=== PATIENT | male | born 1970 | race Caucasian/White ===

== ENCOUNTER 2017-05-05 19:12 | Emergency (ER) | payer BC ==
[2017-05-05 20:40] LABS: INFLUENZA A PATIENT NEGATIVE (NEGATIVE); INFLUENZA B PATIENT NEGATIVE (NEGATIVE); OBC FLU VALID
== END 2017-05-05 21:00 | disposition home or self-care (01) ==
LOC: ER 19:12
DX: J21.9 Acute bronchiolitis, unspecified (principal); M10.9 Gout, unspecified; Z98.1 Arthrodesis status
CPT/HCPCS: 87804; 87804-59; 99284

== ENCOUNTER 2019-04-12 03:53 | Observation (INO) | payer BC ==
[2019-04-12] VITALS (14 sets, daily range): BP systolic 108–144; BP diastolic 42–81
[~2019-04-12] VITALS: Ht 177.8 cm; Wt 97.5 kg
[~2019-04-12 03:53] MED LIST: HYDR5SUS PO; ONDA4TAB10 SL
[2019-04-12 04:44] LABS: BASO # 0.1 x10^3/uL (0.0-0.2); BASO % 0 % (0-3); EOS # 0.3 x10^3/uL (0.0-0.7); EOS % 2 % (0-3); HEMATOCRIT 40.4 % (39.0-53.0); HEMOGLOBIN 14.2 g/dL (13.0-17.5); LYMPH # 1.8 x10^3/uL (1.0-4.8); LYMPH % 13 % (24-48); MEAN CORPUSCULAR HEMOGLOBIN 31 pg (25-35); MEAN CORPUSCULAR HGB CONC 35 g/dL (31-37); MEAN CORPUSCULAR VOLUME 88 fL (79-100); MONO # 1.7 x10^3/uL (0.0-1.1); MONO % 12 % (0-9); NEUT # 9.8 x10^3/uL (1.8-7.7); NEUT % 72 % (31-73); PLATELET COUNT 445 x10^3/uL (140-400); RED BLOOD COUNT 4.58 x10^6/uL (4.30-5.70); RED CELL DISTRIBUTION WIDTH 12.8 % (11.5-14.5); WHITE BLOOD COUNT 13.7 x10^3/uL (4.0-11.0)
[2019-04-12] MEDS ORDERED: CONTRAST GIVEN. MC PRN (04:45)
[2019-04-12 04:50] LABS: CALCIUM 8.9 mg/dL (8.5-10.1); CREATININE 1.1 mg/dL (0.7-1.3); GFR 70.9; POTASSIUM 4.1 mmol/L (3.5-5.1)
[2019-04-12 04:56] LABS: ALBUMIN 3.3 g/dL (3.4-5.0); ALBUMIN/GLOBULIN RATIO 0.8 (1.0-1.7); TOTAL BILIRUBIN 0.7 mg/dL (0.2-1.0); TOTAL PROTEIN 7.7 g/dL (6.4-8.2)
[2019-04-12] MEDS ORDERED: ONDANSETRON PF 4 MG/2 ML VIAL. IV ONE (05:00)
[2019-04-12] MEDS ORDERED: fentaNYL PF VIAL 100 MCG/2 ML VIAL IV ONE (05:00)
[2019-04-12] MEDS ORDERED: IOHEXOL 300 MG/ML 100ML VIAL. IV ONE (05:00)
[2019-04-12] MEDS ORDERED: IV NORMAL SALINE 1000ML BAG 1,000 ML IV ONE (05:00)
--- NOTE | 2019-04-12 05:19 | RAD ---
Exam: Ultrasound scrotum Indication: Swollen testicles Technique: Real-time grayscale and color Doppler images of the scrotum were obtained by the department upsetter setter up. Comparisons: None FINDINGS: Right testicle measures 4.3 x 3.0 x 2.3 cm. Normal blood flow noted within the right testicle. Left testicle measures 4.3 x 2.7 x 2.5 cm. Normal blood flow noted within the left testicle. Bilateral epididymal cysts are noted. Scrotal skin edema is noted, particularly in the inferior scrotum. IMPRESSION: 1. Normal sonographic appearance of the testicles. 2. Extensive scrotal skin edema, particularly in the inferior scrotum. Electronically signed by: La Minor MD (04/12/2019 5:16 AM) [facility]
--- NOTE | 2019-04-12 05:29 | PHYS DOC ---
Past Medical History Past Medical History: Other Additional Past Medical Histor: gout Past Surgical History: Other Additional Past Surgical Histo: cervical fusion, tendon repair right arm. Alcohol Use: None Drug Use: None Adult General Chief Complaint Chief Complaint: TESTICULAR PAIN OR INJURY [facility] HPI 48-year-old otherwise healthy male presents with tender swollen draining areas in the perianal region. He states he saw doctor several days ago and while they were painful they were not on the surface and they were not drained. He states he's been soaking in hot baths and has got one of the areas to come to the surface and drained. He states that there are other areas that are tender swollen and very painful and not draining. He also states that he has had symptoms testicular pain and his testicles have been swollen over the last 24 hours. He denies any fever chills or sweats. He denies any dysuria or gross hematuria. He is never had a diagnosis of Crohn's disease in the past.[] Review of Systems Review of Systems Constitutional: Denies fever or chills [] Eyes: Denies change in visual acuity, redness, or eye pain [] HENT: Denies nasal congestion or sore throat [] Respiratory: Denies cough or shortness of breath [] Cardiovascular: No additional information not addressed in HPI [] GI: Denies abdominal pain, nausea, vomiting, bloody stools or diarrhea , reports perianal abscesses as described in the history of present illness[] : Per history of present illness[] Musculoskeletal: Denies back pain or joint pain [] Integument: Denies rash or skin lesions [] Neurologic: Denies headache, focal weakness or sensory changes [] Endocrine: Denies polyuria or polydipsia [] All other systems were reviewed and found to be within normal limits, except as documented in this note. Current Medications Current Medications Current Medications Medications (Trade) Dose Ordered Sig/Rosemary Start Time Stop Time Status Last Admin Dose Admin Fentanyl Citrate (Fentanyl 2ml Vial) 50 mcg 1X ONCE 04/12/19 05:00 04/12/19 05:01 DC 04/12/19 04:37 50 MCG Info (CONTRAST GIVEN -- Rx MONITORING) 1 each PRN DAILY PRN 04/12/19 04:45 04/14/19 04:44 Iohexol (Omnipaque 300 Mg/ml) 75 ml 1X ONCE 04/12/19 05:00 04/12/19 05:01 DC Ondansetron HCl (Zofran) 4 mg 1X ONCE 04/12/19 05:00 04/12/19 05:01 DC 04/12/19 04:40 4 MG Sodium Chloride 1,000 ml @ 1,000 mls/hr 1X ONCE 04/12/19 05:00 04/12/19 05:59 04/12/19 04:38 1,000 MLS/HR Allergies Allergies Allergies Coded Allergies Type Severity Reaction Last Updated Verified No Known Drug Allergies 04/12/19 No Physical Exam Physical Exam Constitutional: Well developed, well nourished, moderate distress, non-toxic appearance. [] HENT: Normocephalic, atraumatic, bilateral external ears normal, oropharynx moist, no oral exudates, nose normal. [] Eyes: PERRLA, EOMI, conjunctiva normal, no discharge. [] Neck: Normal range of motion, no tenderness, supple, no stridor. [] Cardiovascular:Heart rate regular rhythm, no murmur [] Lungs & Thorax: Bilateral breath sounds clear to auscultation [] Abdomen: Bowel sounds normal, soft, no tenderness, no masses, no pulsatile masses. [] : Testicles are mildly swollen and not particularly erythematous and are not tender to palp he does have very large right perianal abscess that tracks certainly towards the rectal area Skin: Warm, dry, no erythema, no rash. [] Back: No tenderness, no CVA tenderness. [] Extremities: No tenderness, no cyanosis, no clubbing, ROM intact, no edema. [] Neurologic: Alert and oriented X 3, normal motor function, normal sensory functi on, no focal deficits noted. [] Psychologic: Anxious[] Current Patient Data Vital Signs Vital Signs Date Time Temp Pulse Resp B/P (MAP) Pulse Ox O2 Delivery O2 Flow Rate FiO2 04/12/19 04:37 20 96 Room Air 04/12/19 04:00 98.2 84 144/99 (114) 98.2 Lab Values Laboratory Tests Test 04/12/19 04:27 White Blood Count 13.7 x10^3/uL (4.0-11.0) H Red Blood Count 4.58 x10^6/uL (4.30-5.70) Hemoglobin 14.2 g/dL (13.0-17.5) Hematocrit 40.4 % (39.0-53.0) Mean Corpuscular Volume 88 fL (79-100) Mean Corpuscular Hemoglobin 31 pg (25-35) Mean Corpuscular Hemoglobin Concent 35 g/dL (31-37) Red Cell Distribution Width 12.8 % (11.5-14.5) Platelet Count 445 x10^3/uL (140-400) H Neutrophils (%) (Auto) 72 % (31-73) Lymphocytes (%) (Auto) 13 % (24-48) L Monocytes (%) (Auto) 12 % (0-9) H Eosinophils (%) (Auto) 2 % (0-3) Basophils (%) (Auto) 0 % (0-3) Neutrophils # (Auto) 9.8 x10^3/uL (1.8-7.7) H Lymphocytes # (Auto) 1.8 x10^3/uL (1.0-4.8) Monocytes # (Auto) 1.7 x10^3/uL (0.0-1.1) H Eosinophils # (Auto) 0.3 x10^3/uL (0.0-0.7) Basophils # (Auto) 0.1 x10^3/uL (0.0-0.2) Sodium Level 135 mmol/L (136-145) L Potassium Level 4.1 mmol/L (3.5-5.1) Chloride Level 99 mmol/L (98-107) Carbon Dioxide Level 26 mmol/L (21-32) Anion Gap 10 (6-14) Blood Urea Nitrogen 10 mg/dL (8-26) Creatinine 1.1 mg/dL (0.7-1.3) Estimated GFR (Cockcroft-Gault) 70.9 BUN/Creatinine Ratio 9 (6-20) Glucose Level 121 mg/dL (70-99) H Calcium Level 8.9 mg/dL (8.5-10.1) Total Bilirubin 0.7 mg/dL (0.2-1.0) Aspartate Amino Transferase (AST) 22 U/L (15-37) Alanine Aminotransferase (ALT) 61 U/L (16-63) Alkaline Phosphatase 295 U/L (46-116) H Total Protein 7.7 g/dL (6.4-8.2) Albumin 3.3 g/dL (3.4-5.0) L Albumin/Globulin Ratio 0.8 (1.0-1.7) L Laboratory Tests 04/12/19 04:27 Laboratory Tests 04/12/19 04:27 EKG EKG [] Radiology/Procedures Radiology/Procedures []STATUS: REG ERORD. PHYSICIAN: HUYEN MCELROY DO REASON: swollen testicles PROCEDURE: TESTICULAR/SCROTUM Exam: Ultrasound scrotum Indication: Swollen testicles Technique: Real-time grayscale and color Doppler images of the scrotum were obtained by the department botany technician. Comparisons: None FINDINGS: Right testicle measures 4.3 x 3.0 x 2.3 cm. Normal blood flow noted within the right testicle. Left testicle measures 4.3 x 2.7 x 2.5 cm. Normal blood flow noted within the left testicle. Bilateral epididymal cysts are noted. Scrotal skin edema is noted, particularly in the inferior scrotum. IMPRESSION: 1. Normal sonographic appearance of the testicles. 2. Extensive scrotal skin edema, particularly in the inferior scrotum. Impressions: STATUS: REG ERORD. PHYSICIAN: HUYEN MCELROY DO REASON: perianal/perirectal abscess, OMNI 300, 75 ML IV PROCEDURE: CT PELVIS W/CONTRAST Exam: CT pelvis with contrast INDICATION: Perianal abscess TECHNIQUE: Sequential axial images through the pelvis obtained following the administration of 75 mL of Omni 300 IV contrast. Sagittal and coronal reformatted images were reconstructed from the axial data and reviewed. Comparisons: None FINDINGS: Visualized intrapelvic structures are unremarkable. Pelvic vasculature is patent. No pelvic lymphadenopathy. There is soft tissue induration is noted along the medial right gluteal cleft, extending anteriorly with some inflammation of the inferior scrotum. No focal fluid collection is identified. No suspicious osseous lesions or acute fractures. IMPRESSION: Inflammation and induration involving the medial right gluteal cleft and surrounding soft tissue without focal fluid collection identified. Course & Med Decision Making Course & Med Decision Making Pertinent Labs and Imaging studies reviewed. (See chart for details) [] Dragon Disclaimer Dragon Disclaimer This electronic medical record was generated, in whole or in part, using a voice recognition dictation system. Departure Departure Impression: Primary Impression: Perianal abscess Referrals: ROSYE PEARCE MD (PCP) HUYEN MCELROY DO Apr 12, 2019 05:29
--- NOTE | 2019-04-12 05:37 | RAD ---
Exam: CT pelvis with contrast INDICATION: Perianal abscess TECHNIQUE: Sequential axial images through the pelvis obtained following the administration of 75 mL of Omni 300 IV contrast. Sagittal and coronal reformatted images were reconstructed from the axial data and reviewed. Comparisons: None FINDINGS: Visualized intrapelvic structures are unremarkable. Pelvic vasculature is patent. No pelvic lymphadenopathy. There is soft tissue induration is noted along the medial right gluteal cleft, extending anteriorly with some inflammation of the inferior scrotum. No focal fluid collection is identified. No suspicious osseous lesions or acute fractures. IMPRESSION: Inflammation and induration involving the medial right gluteal cleft and surrounding soft tissue without focal fluid collection identified. Exposure: One or more of the following in the visualized dose reduction techniques were utilized for this examination: 1. Automated exposure control 2. Adjustment of the MA and/or KV according to patient size 3. Use of iterative of reconstructive technique Electronically signed by: La Minor MD (04/12/2019 5:34 AM) [facility]
[2019-04-12] MEDS ORDERED: ONDANSETRON PF 4 MG/2 ML VIAL. IV PRN ×2 (05:45→09:00)
[2019-04-12] MEDS ORDERED: PIPERACILLIN/TAZOBACTAM 3.375 GM in IV NORMAL SALINE 50ML 50 ML IV ONE ×2 (06:00→10:30)
[2019-04-12] MEDS: IV NORMAL SALINE 1000ML BAG 1,000 ML IV SCH ×3 (06:42→19:05)
[2019-04-12] MEDS: fentaNYL PF VIAL 100 MCG/2 ML VIAL IV PRN ×6 (06:44→15:15)
--- NOTE | 2019-04-12 08:41 | PDOC2 ---
SEUN FLAHERTY Yohan BIODIESEL PRODUCT DEVELOPMENT MANAGER 04/12/19 0841: CONSULT Date of Consult Date of Consult DATE: 04/12/19 TIME: 08:35 Reason for Consult Reason for Consult: perineal abscess Referring Physician Referring Physician: ER Identification/Chief Complaint Chief Complaint perirectal pain Source Source: Chart review, Patient History of Present Illness Reason for Visit: Reports 1 week with perirectal pain, swelling--has been on oral abx since . Yesterday with drainage, however swelling extended to scrotum. Very painful. Past Medical History Rheumatologic: Gout Past Surgical History Past Surgical History: No pertinent history Family History Family History: Other (noncontributory to current illness ) Social History No ALCOHOL: rare Drugs: None Lives: with Family Current Problem List Problem List Problems Medical Problems: (1) Perianal abscess Status: Acute Current Medications Current Medications Current Medications Sodium Chloride 1,000 ml @ 1,000 mls/hr 1X ONCE IV Last administered on 04/12/19at 04:38; Start 04/12/19 at 05:00; Stop 04/12/19 at 05:59; Status DC Fentanyl Citrate (Fentanyl 2ml Vial) 50 mcg 1X ONCE IV Last administered on 04/12/19at 04:37; Start 04/12/19 at 05:00; Stop 04/12/19 at 05:01; Status DC Ondansetron HCl (Zofran) 4 mg 1X ONCE IV Last administered on 04/12/19at 04:40; Start 04/12/19 at 05:00; Stop 04/12/19 at 05:01; Status DC Iohexol (Omnipaque 300 Mg/ml) 75 ml 1X ONCE IV ; Start 04/12/19 at 05:00; Stop 04/12/19 at 05:01; Status DC Info (CONTRAST GIVEN -- Rx MONITORING) 1 each PRN DAILY PRN MC SEE COMMENTS; Start 04/12/19 at 04:45; Stop 04/14/19 at 04:44 Ondansetron HCl (Zofran) 4 mg PRN Q8HRS PRN IV NAUSEA/VOMITING 1ST CHOICE; Start 04/12/19 at 05:45; Stop 04/13/19 at 05:44 Fentanyl Citrate (Fentanyl 2ml Vial) 50 mcg PRN Q1HR PRN IV SEVERE PAIN 7-10 Last administered on 04/12/19at 08:06; Start 04/12/19 at 05:45; Stop 04/13/19 at 05:44 Sodium Chloride 1,000 ml @ 150 mls/hr Q6H40M IV Last administered on 04/12/19at 06:42; Start 04/12/19 at 06:00; Stop 04/13/19 at 05:59 Piperacillin Sod/ Tazobactam Sod 3.375 gm/Sodium Chloride 50 ml @ 100 mls/hr 1X ONCE IV Last administered on 04/12/19at 06:42; Start 04/12/19 at 06:00; Stop 04/12/19 at 06:29; Status DC Active Scripts Active Zofran Odt (Ondansetron) 4 Mg Tab.rapdis 1 Tab SL Q8HRS Hydrocodone-Chlorpheniram Susp (Hydrocodone/Chlorphen Polis) 5 Ml Drea.er.12h 5 Ml PO PRN Q12HR PRN Allergies Allergies: Coded Allergies: No Known Drug Allergies (Unverified , 04/12/19) ROS General: YES: Chills, Other (subjective fevers ) PSYCHOLOGICAL ROS: No: Anxiety, Depression Eyes: No Blurry vision, No Double vision HEENT: No: Heacaches, Sore Throat Hematological and Lymphatic: No: Bleeding Problems, Blood Clots Respiratory: No: Cough, Shortness of breath Cardiovascular: No Chest Pain, No Palpitations Gastrointestinal: No Nausea, No Vomiting, No Abdominal Pain Genitourinary: YES Dysuria; No Hematuria Musculoskeletal: No Joint Pain, No Muscle Pain Neurological: No Impaired Coord/balance, No Numbness/Tingling Skin: Yes Other (see hpi) Physical Exam General: Alert, Oriented X3, Cooperative, No acute distress HEENT: PERRLA, Mucous membr. moist/pink Lungs: Clear to auscultation, Normal air movement Heart: Regular rate, Normal S1, Normal S2, No murmurs Abdomen: Soft, No tenderness Extremities: No clubbing, No cyanosis Skin: Other (right perineal area with induration, tenderness, area with fluctunace and some drainage, scrotal swelling ) Neuro: Normal speech, Sensation intact Psych/Mental Status: Mental status NL, Mood NL MUSCULOSKELETAL: No deformity, No swelling Vitals VITALS Vital Signs Date Time Temp Pulse Resp B/P (MAP) Pulse Ox O2 Delivery O2 Flow Rate FiO2 04/12/19 08:06 Room Air 04/12/19 07:37 98.8 67 18 114/71 (85) 97 98.8 Labs Labs Laboratory Tests Test 04/12/19 04:27 White Blood Count 13.7 x10^3/uL (4.0-11.0) Red Blood Count 4.58 x10^6/uL (4.30-5.70) Hemoglobin 14.2 g/dL (13.0-17.5) Hematocrit 40.4 % (39.0-53.0) Mean Corpuscular Volume 88 fL (79-100) Mean Corpuscular Hemoglobin 31 pg (25-35) Mean Corpuscular Hemoglobin Concent 35 g/dL (31-37) Red Cell Distribution Width 12.8 % (11.5-14.5) Platelet Count 445 x10^3/uL (140-400) Neutrophils (%) (Auto) 72 % (31-73) Lymphocytes (%) (Auto) 13 % (24-48) Monocytes (%) (Auto) 12 % (0-9) Eosinophils (%) (Auto) 2 % (0-3) Basophils (%) (Auto) 0 % (0-3) Neutrophils # (Auto) 9.8 x10^3/uL (1.8-7.7) Lymphocytes # (Auto) 1.8 x10^3/uL (1.0-4.8) Monocytes # (Auto) 1.7 x10^3/uL (0.0-1.1) Eosinophils # (Auto) 0.3 x10^3/uL (0.0-0.7) Basophils # (Auto) 0.1 x10^3/uL (0.0-0.2) Sodium Level 135 mmol/L (136-145) Potassium Level 4.1 mmol/L (3.5-5.1) Chloride Level 99 mmol/L (98-107) Carbon Dioxide Level 26 mmol/L (21-32) Anion Gap 10 (6-14) Blood Urea Nitrogen 10 mg/dL (8-26) Creatinine 1.1 mg/dL (0.7-1.3) Estimated GFR (Cockcroft-Gault) 70.9 BUN/Creatinine Ratio 9 (6-20) Glucose Level 121 mg/dL (70-99) Calcium Level 8.9 mg/dL (8.5-10.1) Total Bilirubin 0.7 mg/dL (0.2-1.0) Aspartate Amino Transf (AST/SGOT) 22 U/L (15-37) Alanine Aminotransferase (ALT/SGPT) 61 U/L (16-63) Alkaline Phosphatase 295 U/L (46-116) Total Protein 7.7 g/dL (6.4-8.2) Albumin 3.3 g/dL (3.4-5.0) Albumin/Globulin Ratio 0.8 (1.0-1.7) Laboratory Tests Test 04/12/19 04:27 White Blood Count 13.7 x10^3/uL (4.0-11.0) Red Blood Count 4.58 x10^6/uL (4.30-5.70) Hemoglobin 14.2 g/dL (13.0-17.5) Hematocrit 40.4 % (39.0-53.0) Mean Corpuscular Volume 88 fL (79-100) Mean Corpuscular Hemoglobin 31 pg (25-35) Mean Corpuscular Hemoglobin Concent 35 g/dL (31-37) Red Cell Distribution Width 12.8 % (11.5-14.5) Platelet Count 445 x10^3/uL (140-400) Neutrophils (%) (Auto) 72 % (31-73) Lymphocytes (%) (Auto) 13 % (24-48) Monocytes (%) (Auto) 12 % (0-9) Eosinophils (%) (Auto) 2 % (0-3) Basophils (%) (Auto) 0 % (0-3) Neutrophils # (Auto) 9.8 x10^3/uL (1.8-7.7) Lymphocytes # (Auto) 1.8 x10^3/uL (1.0-4.8) Monocytes # (Auto) 1.7 x10^3/uL (0.0-1.1) Eosinophils # (Auto) 0.3 x10^3/uL (0.0-0.7) Basophils # (Auto) 0.1 x10^3/uL (0.0-0.2) Sodium Level 135 mmol/L (136-145) Potassium Level 4.1 mmol/L (3.5-5.1) Chloride Level 99 mmol/L (98-107) Carbon Dioxide Level 26 mmol/L (21-32) Anion Gap 10 (6-14) Blood Urea Nitrogen 10 mg/dL (8-26) Creatinine 1.1 mg/dL (0.7-1.3) Estimated GFR (Cockcroft-Gault) 70.9 BUN/Creatinine Ratio 9 (6-20) Glucose Level 121 mg/dL (70-99) Calcium Level 8.9 mg/dL (8.5-10.1) Total Bilirubin 0.7 mg/dL (0.2-1.0) Aspartate Amino Transf (AST/SGOT) 22 U/L (15-37) Alanine Aminotransferase (ALT/SGPT) 61 U/L (16-63) Alkaline Phosphatase 295 U/L (46-116) Total Protein 7.7 g/dL (6.4-8.2) Albumin 3.3 g/dL (3.4-5.0) Albumin/Globulin Ratio 0.8 (1.0-1.7) Assessment/Plan Assessment/Plan perineal cellulitis, asbcess would appear to benefit from I&D, however this extends to scrotum--will have Dr Markham review continue abx CHERYL MARKHAM MD 04/12/19 1506: CONSULT Assessment/Plan Assessment/Plan pt seen, interviewed and examined earlier d/w Artur and his for I and D today will follow Thanks for consult SEUN FLAHERTY APRN Apr 12, 2019 08:41 CHERYL MARKHAM MD Apr 12, 2019 15:06
[2019-04-12] MEDS ORDERED: IV RINGERS,LACTATED 1000ML 1,000 ML IV SCH (08:47)
[2019-04-12] MEDS ORDERED: MORPHINE SULFATE 2 MG/ML VIAL. IV PRN (09:00)
[2019-04-12] MEDS ORDERED: HYDROmorphone 2 MG/ML VIAL IV PRN (09:00)
[2019-04-12] MEDS ORDERED: fentaNYL PF VIAL 100 MCG/2 ML VIAL IV PRN ×2 (09:00)
[2019-04-12] MEDS ORDERED: PROCHLORPERAZINE 10 MG/2 ML VIAL. IV PRN (09:00)
[2019-04-12] MEDS ORDERED: CLIN300C8 PO ×2 (09:04→19:42)
[2019-04-12] MEDS ORDERED: PROB500T23 PO (09:04)
--- NOTE | 2019-04-12 11:00 | NUR ---
wound care patient going to surgery today 04/12/19, wound care will f/u tomorrow.
--- NOTE | 2019-04-12 11:45 | NUR ---
SW following for discharge planning. Discussed with RN, pt from home. PT having surgery today. SW will continue to follow for any discharge planning needs.
[2019-04-12] MEDS ORDERED: fentaNYL PF VIAL 100 MCG/2 ML VIAL ONE ×3 (11:56→13:27)
[2019-04-12] MEDS ORDERED: MIDAZOLAM HCL/PF 2 MG/2 ML VIAL. ONE (12:00)
[2019-04-12] MEDS ORDERED: DEXAMETHASONE SOD PHOS 4 MG/ML VIAL ONE (12:00)
[2019-04-12] MEDS ORDERED: LIDOCAINE 2% PF 5 ML VIAL. ONE (12:00)
[2019-04-12] MEDS ORDERED: PROPOFOL 20 ML IV ONE (12:00)
[2019-04-12] MEDS ORDERED: KETAMINE HCL IN NACL, ISO-OSM 50 MG/5 ML SYRINGE ONE (12:00)
[2019-04-12] MEDS ORDERED: ONDANSETRON PF 4 MG/2 ML VIAL. ONE (12:00)
[2019-04-12] MEDS ORDERED: FAMOTIDINE 20 MG/2 ML VIAL ONE (12:03)
[2019-04-12] MEDS ORDERED: BUPIVACAINE-EPI 0.5%-1:200000 MPF 30 ML VIAL. INJ ONE (12:15)
[2019-04-12] MEDS ORDERED: SEVOFLURANE 16 TO 30 MINUTES. IH ONE (12:43)
--- NOTE | 2019-04-12 12:49 | PDOC1 ---
History and Physical Date of Admission Date of Admission DATE: 04/12/19 TIME: 12:49 Identification/Chief Complaint Chief Complaint Jamie-anal abscess Source Source: Patient History of Present Illness History of Present Illness Mr Miranda is a 48y M w/ PMHx Gout who p/w tender swollen draining areas in the perianal region, worse on the right. He states he saw doctor several days ago and while they were painful they were not on the surface and they were not drained. He states he's been soaking in hot baths and has got one of the areas to come to the surface and drained. He states that there are other areas that ar e tender swollen and very painful and not draining. He also states that he has had symptoms testicular pain and his testicles have been swollen over the last 24 hours. He denies any fever chills or sweats. He denies any dysuria or gross hematuria. He has been on oral abx since . Too painful to handle at home. CT shows right gluteal cleft induration. WBC 13K. Admitted for pain control with surgical consultation. Past Medical History Cardiovascular: No pertinent hx Rheumatologic: Gout Past Surgical History Past Surgical History: Other (Cervical fusion, tendon rupture surgery) Family History Family History: Other (noncontributory to current illness ) Social History Smoke: No ALCOHOL: rare Drugs: None Current Problem List Problem List Problems Medical Problems: (1) Perianal abscess Status: Acute Current Medications Current Medications Current Medications Sodium Chloride 1,000 ml @ 1,000 mls/hr 1X ONCE IV Last administered on 04/12/19at 04:38; Start 04/12/19 at 05:00; Stop 04/12/19 at 05:59; Status DC Fentanyl Citrate (Fentanyl 2ml Vial) 50 mcg 1X ONCE IV Last administered on 04/12/19at 04:37; Start 04/12/19 at 05:00; Stop 04/12/19 at 05:01; Status DC Ondansetron HCl (Zofran) 4 mg 1X ONCE IV Last administered on 04/12/19at 04:40; Start 04/12/19 at 05:00; Stop 04/12/19 at 05:01; Status DC Iohexol (Omnipaque 300 Mg/ml) 75 ml 1X ONCE IV ; Start 04/12/19 at 05:00; Stop 04/12/19 at 05:01; Status DC Info (CONTRAST GIVEN -- Rx MONITORING) 1 each PRN DAILY PRN MC SEE COMMENTS; Start 04/12/19 at 04:45; Stop 04/14/19 at 04:44 Ondansetron HCl (Zofran) 4 mg PRN Q8HRS PRN IV NAUSEA/VOMITING 1ST CHOICE; Start 04/12/19 at 05:45; Stop 04/13/19 at 05:44 Fentanyl Citrate (Fentanyl 2ml Vial) 50 mcg PRN Q1HR PRN IV SEVERE PAIN 7-10 Last administered on 04/12/19at 11:58; Start 04/12/19 at 05:45; Stop 04/13/19 at 05:44 Sodium Chloride 1,000 ml @ 150 mls/hr Q6H40M IV Last administered on 04/12/19at 06:42; Start 04/12/19 at 06:00; Stop 04/13/19 at 05:59 Piperacillin Sod/ Tazobactam Sod 3.375 gm/Sodium Chloride 50 ml @ 100 mls/hr 1X ONCE IV Last administered on 04/12/19at 06:42; Start 04/12/19 at 06:00; Stop 04/12/19 at 06:29; Status DC Ondansetron HCl (Zofran) 4 mg PRN Q6HRS PRN IV NAUSEA/VOMITING; Start 04/12/19 at 09:00; Stop 04/13/19 at 08:59 Fentanyl Citrate (Fentanyl 2ml Vial) 25 mcg PRN Q5MIN PRN IV MILD PAIN 1-3; Start 04/12/19 at 09:00; Stop 04/13/19 at 08:59 Fentanyl Citrate (Fentanyl 2ml Vial) 50 mcg PRN Q5MIN PRN IV MODERATE TO SEVERE PAIN; Start 04/12/19 at 09:00; Stop 04/13/19 at 08:59 Morphine Sulfate (Morphine Sulfate) 1 mg PRN Q10MIN PRN IV SEVERE PAIN 7-10; Start 04/12/19 at 09:00; Stop 04/13/19 at 08:59 Ringer's Solution 1,000 ml @ 30 mls/hr Q24H IV ; Start 04/12/19 at 08:47; Stop 04/12/19 at 20:46 Hydromorphone HCl (Dilaudid) 0.5 mg PRN Q10MIN PRN IV SEV PAIN, Second choice; Start 04/12/19 at 09:00; Stop 04/13/19 at 08:59 Prochlorperazine Edisylate (Compazine) 5 mg PACU PRN PRN IV NAUSEA, MRX1; Start 04/12/19 at 09:00; Stop 04/13/19 at 08:59 Piperacillin Sod/ Tazobactam Sod 3.375 gm/Sodium Chloride 50 ml @ 100 mls/hr 1X ONCE IV ; Start 04/12/19 at 10:30; Stop 04/12/19 at 10:59; Status DC Fentanyl Citrate (Fentanyl 2ml Vial) 100 mcg STK-MED ONCE .ROUTE ; Start 04/12/19 at 11:56; Stop 04/12/19 at 11:57; Status DC Propofol 20 ml @ As Directed STK-MED ONCE IV ; Start 04/12/19 at 12:00; Stop 04/12/19 at 12:01; Status DC Lidocaine HCl (Lidocaine Pf 2% Vial) 5 ml STK-MED ONCE .ROUTE ; Start 04/12/19 at 12:00; Stop 04/12/19 at 12:01; Status DC Ondansetron HCl (Zofran) 4 mg STK-MED ONCE .ROUTE ; Start 04/12/19 at 12:00; Stop 04/12/19 at 12:01; Status DC Dexamethasone Sodium Phosphate (Decadron) 4 mg STK-MED ONCE .ROUTE ; Start 04/12/19 at 12:00; Stop 04/12/19 at 12:01; Status DC Fentanyl Citrate (Fentanyl 2ml Vial) 100 mcg STK-MED ONCE .ROUTE ; Start 04/12/19 at 12:00; Stop 04/12/19 at 12:02; Status DC Midazolam HCl (Versed) 2 mg STK-MED ONCE .ROUTE ; Start 04/12/19 at 12:00; Stop 04/12/19 at 12:02; Status DC Ketamine HCl (Ketamine) 50 mg STK-MED ONCE .ROUTE ; Start 04/12/19 at 12:00; Stop 04/12/19 at 12:02; Status DC Famotidine (Pepcid Vial) 20 mg STK-MED ONCE .ROUTE ; Start 04/12/19 at 12:03; Stop 04/12/19 at 12:03; Status DC Bupivacaine HCl/ Epinephrine Bitart (Sensorcain-Epi 0.5%-1:301953 Mpf) 30 ml 1X ONCE INJ ; Start 04/12/19 at 12:15; Stop 04/12/19 at 12:16; Status DC Sevoflurane (Ultane) 15 ml STK-MED ONCE IH ; Start 04/12/19 at 12:43; Stop 04/12/19 at 12:43; Status DC Active Scripts Active Zofran Odt (Ondansetron) 4 Mg Tab.rapdis 1 Tab SL Q8HRS Hydrocodone-Chlorpheniram Susp (Hydrocodone/Chlorphen Polis) 5 Ml Drea.er.12h 5 Ml PO PRN Q12HR PRN Reported Clindamycin Hcl 300 Mg Capsule 1 Cap PO TID Probenecid 500 Mg Tablet 500 Mg PO DAILY Allergies Allergies: Coded Allergies: No Known Drug Allergies (Unverified , 04/12/19) ROS General: No: Chills, Night Sweats, Fatigue, Malaise, Appetite, Other PSYCHOLOGICAL ROS: No: Anxiety, Behavioral Disorder, Concentration difficultie, Decreased libido, Depression, Disorientation, Hallucinations, Hostility, Irritablity, Memory difficulties, Mood Swings, Obsessive thoughts, Physical abuse, Sexual abuse, Sleep disturbances, Suicidal ideation, Other Eyes: No Blurry vision, No Decreased vision, No Double vision, No Dry eyes, No Excessive tearing, No Eye Pain, No Itchy Eyes, No Loss of vision, No Photophobia, No Scotomata, No Uses contacts, No Uses glasses, No Other HEENT: No: Heacaches, Visual Changes, Hearing change, Nasal congestion, Nasal discharge, Oral lesions, Sinus pain, Sore Throat, Epistaxis, Sneezing, Snoring, Tinnitus, Vertigo, Vocal changes, Other ALLERGY AND IMMUNOLOGY: No: Hives, Insect Bite Sensitivity, Itchy/Watery Eyes, Nasal Congestion, Post Nasal Drip, Seasonal Allergies, Other Hematological and Lymphatic: No: Bleeding Problems, Blood Clots, Blood Transfusions, Brusing, Night Sweats, Pallor, Swollen Lymph Nodes, Other ENDOCRINE: No: Breast Changes, Galactorrhea, Hair Pattern Changes, Hot Flashes, Malaise/lethargy, Mood Swings, Palpitations, Polydipsia/polyuria, Skin Changes, Temperature Intolerance, Unexpected Weight Changes, Other Breast: No New/Changing Breast Lumps, No Nipple changes, No Nipple discharge, No Other Respiratory: No: Cough, Hemoptysis, Orthopnea, Pleuritic Pain, Shortness of breath, SOB with excertion, Sputum Changes, Stridor, Tachypnea, Wheezing, Other Cardiovascular: No Chest Pain, No Palpitations, No Orthopnea, No Paroxysmal Noc. Dyspnea, No Edema, No Lt Headedness, No Other Gastrointestinal: Yes Nausea; No Vomiting, No Abdominal Pain, No Diarrhea, No Constipation, No Melena, No Hematochezia, No Other Genitourinary: No Dysuria, No Frequency, No Incontinence, No Hematuria, No Retention, No Discharge, No Urgency, No Pain, No Flank Pain, No Other, No , No , No , No , No , No , No Musculoskeletal: No Gait Disturbance, No Joint Pain, No Joint Stiffness, No Joint Swelling, No Muscle Pain, No Muscular Weakness, No Pain In:, No Swelling In:, No Other Neurological: No Behavorial Changes, No Bowel/Bladder ControlChng, No Confusion, No Dizziness, No Gait Disturbance, No Headaches, No Impaired Coord/balance, No Memory Loss, No Numbness/Tingling, No Seizures, No Speech Problems, No Tremors, No Visual Changes, No Weakness, No Other Skin: Yes Rash, Yes Skin Lesion Changes; No Dry Skin, No Eczema, No Hair Changes, No Lumps, No Mole Changes, No Mottling, No Nail Changes, No Pruritus, No Other, No Acne Vitals Vitals Vital Signs Date Time Temp Pulse Resp B/P (MAP) Pulse Ox O2 Delivery O2 Flow Rate FiO2 04/12/19 11:58 15 97 Room Air 04/12/19 11:53 98.7 67 134/88 98.7 Labs Labs Laboratory Tests Test 04/12/19 04:27 White Blood Count 13.7 x10^3/uL (4.0-11.0) Red Blood Count 4.58 x10^6/uL (4.30-5.70) Hemoglobin 14.2 g/dL (13.0-17.5) Hematocrit 40.4 % (39.0-53.0) Mean Corpuscular Volume 88 fL (79-100) Mean Corpuscular Hemoglobin 31 pg (25-35) Mean Corpuscular Hemoglobin Concent 35 g/dL (31-37) Red Cell Distribution Width 12.8 % (11.5-14.5) Platelet Count 445 x10^3/uL (140-400) Neutrophils (%) (Auto) 72 % (31-73) Lymphocytes (%) (Auto) 13 % (24-48) Monocytes (%) (Auto) 12 % (0-9) Eosinophils (%) (Auto) 2 % (0-3) Basophils (%) (Auto) 0 % (0-3) Neutrophils # (Auto) 9.8 x10^3/uL (1.8-7.7) Lymphocytes # (Auto) 1.8 x10^3/uL (1.0-4.8) Monocytes # (Auto) 1.7 x10^3/uL (0.0-1.1) Eosinophils # (Auto) 0.3 x10^3/uL (0.0-0.7) Basophils # (Auto) 0.1 x10^3/uL (0.0-0.2) Sodium Level 135 mmol/L (136-145) Potassium Level 4.1 mmol/L (3.5-5.1) Chloride Level 99 mmol/L (98-107) Carbon Dioxide Level 26 mmol/L (21-32) Anion Gap 10 (6-14) Blood Urea Nitrogen 10 mg/dL (8-26) Creatinine 1.1 mg/dL (0.7-1.3) Estimated GFR (Cockcroft-Gault) 70.9 BUN/Creatinine Ratio 9 (6-20) Glucose Level 121 mg/dL (70-99) Calcium Level 8.9 mg/dL (8.5-10.1) Total Bilirubin 0.7 mg/dL (0.2-1.0) Aspartate Amino Transf (AST/SGOT) 22 U/L (15-37) Alanine Aminotransferase (ALT/SGPT) 61 U/L (16-63) Alkaline Phosphatase 295 U/L (46-116) Total Protein 7.7 g/dL (6.4-8.2) Albumin 3.3 g/dL (3.4-5.0) Albumin/Globulin Ratio 0.8 (1.0-1.7) Laboratory Tests Test 04/12/19 04:27 White Blood Count 13.7 x10^3/uL (4.0-11.0) Red Blood Count 4.58 x10^6/uL (4.30-5.70) Hemoglobin 14.2 g/dL (13.0-17.5) Hematocrit 40.4 % (39.0-53.0) Mean Corpuscular Volume 88 fL (79-100) Mean Corpuscular Hemoglobin 31 pg (25-35) Mean Corpuscular Hemoglobin Concent 35 g/dL (31-37) Red Cell Distribution Width 12.8 % (11.5-14.5) Platelet Count 445 x10^3/uL (140-400) Neutrophils (%) (Auto) 72 % (31-73) Lymphocytes (%) (Auto) 13 % (24-48) Monocytes (%) (Auto) 12 % (0-9) Eosinophils (%) (Auto) 2 % (0-3) Basophils (%) (Auto) 0 % (0-3) Neutrophils # (Auto) 9.8 x10^3/uL (1.8-7.7) Lymphocytes # (Auto) 1.8 x10^3/uL (1.0-4.8) Monocytes # (Auto) 1.7 x10^3/uL (0.0-1.1) Eosinophils # (Auto) 0.3 x10^3/uL (0.0-0.7) Basophils # (Auto) 0.1 x10^3/uL (0.0-0.2) Sodium Level 135 mmol/L (136-145) Potassium Level 4.1 mmol/L (3.5-5.1) Chloride Level 99 mmol/L (98-107) Carbon Dioxide Level 26 mmol/L (21-32) Anion Gap 10 (6-14) Blood Urea Nitrogen 10 mg/dL (8-26) Creatinine 1.1 mg/dL (0.7-1.3) Estimated GFR (Cockcroft-Gault) 70.9 BUN/Creatinine Ratio 9 (6-20) Glucose Level 121 mg/dL (70-99) Calcium Level 8.9 mg/dL (8.5-10.1) Total Bilirubin 0.7 mg/dL (0.2-1.0) Aspartate Amino Transf (AST/SGOT) 22 U/L (15-37) Alanine Aminotransferase (ALT/SGPT) 61 U/L (16-63) Alkaline Phosphatase 295 U/L (46-116) Total Protein 7.7 g/dL (6.4-8.2) Albumin 3.3 g/dL (3.4-5.0) Albumin/Globulin Ratio 0.8 (1.0-1.7) Images Images Scrotal US - Right testicle measures 4.3 x 3.0 x 2.3 cm. Normal blood flow noted within the right testicle. Left testicle measures 4.3 x 2.7 x 2.5 cm. Normal blood flow noted within the left testicle. Bilateral epididymal cysts are noted. Scrotal skin edema is noted, particularly in the inferior scrotum. IMPRESSION: 1. Normal sonographic appearance of the testicles. 2. Extensive scrotal skin edema, particularly in the inferior scrotum. CT abdomen/pelvis - Visualized intrapelvic structures are unremarkable. Pelvic vasculature is patent. No pelvic lymphadenopathy. There is soft tissue induration is noted along the medial right gluteal cleft, extending anteriorly with some inflammation of the inferior scrotum. No focal fluid collection is identified. No suspicious osseous lesions or acute fractures. IMPRESSION: Inflammation and induration involving the medial right gluteal cleft and surrounding soft tissue without focal fluid collection identified. VTE Prophylaxis Ordered VTE Prophylaxis Devices: No VTE Pharmacological Prophylaxi: No Assessment/Plan Assessment/Plan A/P: Right gluteal pain - no discrete abscess noted on CT, but with tracking of induration toward scrotum. Empiric antibiotics - vanco, zosyn, flagyl. General surgery consulted Intractable pain - IV and po pain control FEN - NPO PPX - SCDs FULL CODE Dispo - inpatient for jamie-rectal abscess KIMBERLEY PIMENTEL MD Apr 12, 2019 12:49
[2019-04-12] MEDS ORDERED: SURGICEL HEMOSTAT 4X8 EACH. ONE (13:20)
[2019-04-12] MEDS ORDERED: VANCOMYCIN PER PHARMACY MC PRN (13:30)
[2019-04-12] MEDS ORDERED: PIPERACILLIN/TAZOBACTAM 3.375 GM in IV NORMAL SALINE 50ML 50 ML IV SCH (13:30)
[2019-04-12] MEDS ORDERED: VANCOMYCIN 2 GM in IV NORMAL SALINE 500ML BAG 500 ML IV ONE ×2 (13:30→15:00)
--- NOTE | 2019-04-12 14:00 | NUR ---
Pt. back from PACU, rates pain at 0/10, denies nausea.
--- NOTE | 2019-04-12 15:10 | PDOC ---
BRIEF OPERATIVE NOTE Date: Apr 12, 2019 Pre-Op Diagnosis perirectal abscess Post-Op Diagnosis same Procedure Performed I and D Surgeon Maxx Anesthesia Type: General Blood Loss 25cc IV Fluid 600cc Specimens Obtained cultures Findings perirectal abscess with extension up the left groin Complications none Operative Note Wk # [id number] CHERYL MARKHAM MD Apr 12, 2019 15:10
--- NOTE | 2019-04-12 15:31 | NUR ---
Pharmacy Vancomycin Dosing Note S: Consulted to monitor and dose vancomycin started 04/12/19. O: JOCY DYER is a 48 year old M with Abscess. Other Antibiotics: FLAGYL, ZOSYN LABS: Last BUN: 10 Last Creatinine: 1.1 Creatinine Clearance: 92 mL/min Last WBC: 13.7 Last Procalcitonin: Tmax (past 24 hours): 98.8 Vancomycin Dosing: Dosing Weight: Actual Target Trough: 10-20 A: Based on: VANCO dosing guidelines P: 1. Begin Vancomycin 2000mg LOAD dose, then 1500 mg IV q12h 2. Follow up Trough level on 04/14/19 at 0230 3. Pharmacy will continue to monitor, follow and adjust therapy as needed. SCARLETT UP, [facility], 04/12/19 [id number]
[2019-04-12] MEDS: PIPERACILLIN/TAZOBACTAM 3.375 GM in IV NORMAL SALINE 50ML 50 ML IV SCH ×2 (17:38→23:48)
[2019-04-12] MEDS: oxyCODONE/APAP 5/325 1 TAB TABLET PO PRN ×2 (17:42→21:45)
[2019-04-12] MEDS ORDERED: ZOLPIDEM 5 MG TABLET. PO PRN (17:45)
--- NOTE | 2019-04-12 18:59 | OP ---
DATE OF SURGERY: 04/12/2019 PREOPERATIVE DIAGNOSIS: Perirectal abscess. POSTOPERATIVE DIAGNOSIS: Perirectal abscess. PROCEDURE: Incision and drainage. SURGEON: Cheryl Markham MD ANESTHESIA: General LMA. ESTIMATED BLOOD LOSS: 25. INTRAVENOUS FLUIDS: 600. INDICATIONS: The patient is a 48-year-old with pain, warmth, redness, drainage and swelling on the left perirectal area extending up toward the scrotum. DESCRIPTION OF PROCEDURE: The patient brought to the operating suite, given a general LMA and placed in the dorsal lithotomy position and the genitalia and perianal area were prepped and draped in usual sterile fashion. The point of drainage was opened with a hemostat and the cavity evacuated purulent drainage and then cultured. Digital exploration broke down loculations and revealed proximal extension up toward the left groin. A counter incision was made at the end of this pathway and the wound was irrigated with saline. A [place] drain was looped through the defect and sewn with a silk stitch. Surgicel used to dress. Sterile dressing applied. The patient taken out of lithotomy, awakened from his anesthetic and taken to the recovery room in satisfactory condition. CHERYL MARKHAM MD DR: BRUNO/michaela JOB#: [id number] / [id number]
[2019-04-12] MEDS ORDERED: AMOX1TAB61 PO (19:42)
[2019-04-12] MEDS ORDERED: OXYC1TAB15 PO (19:42)
[2019-04-12] MEDS ORDERED: LACT1CAP19 PO (19:42)
[2019-04-12] MEDS: LACTOBACILLUS RHAMNOSUS GG 1 CAPSULE. PO SCH (20:53)
[2019-04-13] MEDS: IV NORMAL SALINE 1000ML BAG 1,000 ML IV SCH (02:22)
[2019-04-13] MEDS: oxyCODONE/APAP 5/325 1 TAB TABLET PO PRN (02:36)
[2019-04-13 03:00] VITALS: BP 98/59
[2019-04-13] MEDS ORDERED: VANCOMYCIN 1.5 GM in IV NORMAL SALINE 500ML BAG 500 ML IV SCH (03:00)
[2019-04-13] MEDS: PIPERACILLIN/TAZOBACTAM 3.375 GM in IV NORMAL SALINE 50ML 50 ML IV SCH (05:26)
[2019-04-13 07:15] VITALS: BP 10/70
--- NOTE | 2019-04-13 08:13 | PDOC ---
PROGRESS NOTES Chief Complaint Chief Complaint A/P: Right gluteal pain - no discrete abscess noted on CT, but with tracking of induration toward scrotum and obvious abscess upon I&D. Empiric antibiotics - vanco, zosyn, flagyl. General surgery consulted Intractable pain - IV and po pain control FEN - General diet PPX - SCDs FULL CODE Dispo - inpatient for jamie-rectal abscess History of Present Illness History of Present Illness Mr Miranda is a 48y M w/ PMHx Gout who p/w tender swollen draining areas in the perianal region, worse on the right. He states he saw doctor several days ago and while they were painful they were not on the surface and they were not drained. He states he's been soaking in hot baths and has got one of the areas to come to the surface and drained. He states that there are other areas that are tender swollen and very painful and not draining. He also states that he has had symptoms testicular pain and his testicles have been swollen over the last 24 hours. He denies any fever chills or sweats. He denies any dysuria or gross hematuria. He has been on oral abx since . Too painful to handle at home. CT shows right gluteal cleft induration. WBC 13K. Admitted for pain control with surgical consultation. S/p I&D with drain placement on 04/12, feeling significant relief. Having BM, he is anxious to leave the hospital. Culture pending - shows GNR. Given augmentin and clindamycin, will f/u culture results. Vitals Vitals Vital Signs Date Time Temp Pulse Resp B/P (MAP) Pulse Ox O2 Delivery O2 Flow Rate FiO2 04/13/19 07:15 98.6 72 20 10/70 (50) 97 Room Air 98.6 04/12/19 13:10 10 Physical Exam General: Alert, Oriented X3, Cooperative, No acute distress Heart: Regular rate, Normal S1, Normal S2, No murmurs Abdomen: Soft, No tenderness Extremities: No clubbing, No cyanosis Skin: Other (right perineal area with induration, tenderness, area with fluctunace and some drainage, scrotal swelling ) Assessment and Plan Assessmemt and Plan Problems Medical Problems: (1) Perianal abscess Status: Acute Comment Review of Relevant I have reviewed the following items rosalind (where applicable) has been applied. Labs Laboratory Tests Test 04/12/19 04:27 White Blood Count 13.7 x10^3/uL (4.0-11.0) Red Blood Count 4.58 x10^6/uL (4.30-5.70) Hemoglobin 14.2 g/dL (13.0-17.5) Hematocrit 40.4 % (39.0-53.0) Mean Corpuscular Volume 88 fL (79-100) Mean Corpuscular Hemoglobin 31 pg (25-35) Mean Corpuscular Hemoglobin Concent 35 g/dL (31-37) Red Cell Distribution Width 12.8 % (11.5-14.5) Platelet Count 445 x10^3/uL (140-400) Neutrophils (%) (Auto) 72 % (31-73) Lymphocytes (%) (Auto) 13 % (24-48) Monocytes (%) (Auto) 12 % (0-9) Eosinophils (%) (Auto) 2 % (0-3) Basophils (%) (Auto) 0 % (0-3) Neutrophils # (Auto) 9.8 x10^3/uL (1.8-7.7) Lymphocytes # (Auto) 1.8 x10^3/uL (1.0-4.8) Monocytes # (Auto) 1.7 x10^3/uL (0.0-1.1) Eosinophils # (Auto) 0.3 x10^3/uL (0.0-0.7) Basophils # (Auto) 0.1 x10^3/uL (0.0-0.2) Sodium Level 135 mmol/L (136-145) Potassium Level 4.1 mmol/L (3.5-5.1) Chloride Level 99 mmol/L (98-107) Carbon Dioxide Level 26 mmol/L (21-32) Anion Gap 10 (6-14) Blood Urea Nitrogen 10 mg/dL (8-26) Creatinine 1.1 mg/dL (0.7-1.3) Estimated GFR (Cockcroft-Gault) 70.9 BUN/Creatinine Ratio 9 (6-20) Glucose Level 121 mg/dL (70-99) Calcium Level 8.9 mg/dL (8.5-10.1) Total Bilirubin 0.7 mg/dL (0.2-1.0) Aspartate Amino Transf (AST/SGOT) 22 U/L (15-37) Alanine Aminotransferase (ALT/SGPT) 61 U/L (16-63) Alkaline Phosphatase 295 U/L (46-116) Total Protein 7.7 g/dL (6.4-8.2) Albumin 3.3 g/dL (3.4-5.0) Albumin/Globulin Ratio 0.8 (1.0-1.7) Medications Current Medications Sodium Chloride 1,000 ml @ 1,000 mls/hr 1X ONCE IV Last administered on 04/12/19at 04:38; Start 04/12/19 at 05:00; Stop 04/12/19 at 05:59; Status DC Fentanyl Citrate (Fentanyl 2ml Vial) 50 mcg 1X ONCE IV Last administered on 04/12/19at 04:37; Start 04/12/19 at 05:00; Stop 04/12/19 at 05:01; Status DC Ondansetron HCl (Zofran) 4 mg 1X ONCE IV Last administered on 04/12/19at 04:40; Start 04/12/19 at 05:00; Stop 04/12/19 at 05:01; Status DC Iohexol (Omnipaque 300 Mg/ml) 75 ml 1X ONCE IV ; Start 04/12/19 at 05:00; Stop 04/12/19 at 05:01; Status DC Info (CONTRAST GIVEN -- Rx MONITORING) 1 each PRN DAILY PRN MC SEE COMMENTS; Start 04/12/19 at 04:45; Stop 04/14/19 at 04:44 Ondansetron HCl (Zofran) 4 mg PRN Q8HRS PRN IV NAUSEA/VOMITING 1ST CHOICE; Start 04/12/19 at 05:45; Stop 04/13/19 at 05:44; Status DC Fentanyl Citrate (Fentanyl 2ml Vial) 50 mcg PRN Q1HR PRN IV SEVERE PAIN 7-10 Last administered on 04/12/19at 15:15; Start 04/12/19 at 05:45; Stop 04/13/19 at 05:44; Status DC Sodium Chloride 1,000 ml @ 150 mls/hr Q6H40M IV Last administered on 04/13/19at 02:22; Start 04/12/19 at 06:00; Stop 04/13/19 at 05:59; Status DC Piperacillin Sod/ Tazobactam Sod 3.375 gm/Sodium Chloride 50 ml @ 100 mls/hr 1X ONCE IV Last administered on 04/12/19at 06:42; Start 04/12/19 at 06:00; Stop 04/12/19 at 06:29; Status DC Ondansetron HCl (Zofran) 4 mg PRN Q6HRS PRN IV NAUSEA/VOMITING; Start 04/12/19 at 09:00; Stop 04/12/19 at 16:00; Status DC Fentanyl Citrate (Fentanyl 2ml Vial) 25 mcg PRN Q5MIN PRN IV MILD PAIN 1-3; Start 04/12/19 at 09:00; Stop 04/12/19 at 16:00; Status DC Fentanyl Citrate (Fentanyl 2ml Vial) 50 mcg PRN Q5MIN PRN IV MODERATE TO SEVERE PAIN; Start 04/12/19 at 09:00; Stop 04/12/19 at 16:00; Status DC Morphine Sulfate (Morphine Sulfate) 1 mg PRN Q10MIN PRN IV SEVERE PAIN 7-10; Start 04/12/19 at 09:00; Stop 04/12/19 at 16:00; Status DC Ringer's Solution 1,000 ml @ 30 mls/hr Q24H IV ; Start 04/12/19 at 08:47; Stop 04/12/19 at 20:46; Status DC Hydromorphone HCl (Dilaudid) 0.5 mg PRN Q10MIN PRN IV SEV PAIN, Second choice; Start 04/12/19 at 09:00; Stop 04/12/19 at 16:00; Status DC Prochlorperazine Edisylate (Compazine) 5 mg PACU PRN PRN IV NAUSEA, MRX1; Start 04/12/19 at 09:00; Stop 04/12/19 at 16:00; Status DC Piperacillin Sod/ Tazobactam Sod 3.375 gm/Sodium Chloride 50 ml @ 100 mls/hr 1X ONCE IV ; Start 04/12/19 at 10:30; Stop 04/12/19 at 10:59; Status DC Fentanyl Citrate (Fentanyl 2ml Vial) 100 mcg STK-MED ONCE .ROUTE ; Start 04/12/19 at 11:56; Stop 04/12/19 at 11:57; Status DC Propofol 20 ml @ As Directed STK-MED ONCE IV ; Start 04/12/19 at 12:00; Stop 04/12/19 at 12:01; Status DC Lidocaine HCl (Lidocaine Pf 2% Vial) 5 ml STK-MED ONCE .ROUTE ; Start 04/12/19 at 12:00; Stop 04/12/19 at 12:01; Status DC Ondansetron HCl (Zofran) 4 mg STK-MED ONCE .ROUTE ; Start 04/12/19 at 12:00; Stop 04/12/19 at 12:01; Status DC Dexamethasone Sodium Phosphate (Decadron) 4 mg STK-MED ONCE .ROUTE ; Start 04/12/19 at 12:00; Stop 04/12/19 at 12:01; Status DC Fentanyl Citrate (Fentanyl 2ml Vial) 100 mcg STK-MED ONCE .ROUTE ; Start 04/12/19 at 12:00; Stop 04/12/19 at 12:02; Status DC Midazolam HCl (Versed) 2 mg STK-MED ONCE .ROUTE ; Start 04/12/19 at 12:00; Stop 04/12/19 at 12:02; Status DC Ketamine HCl (Ketamine) 50 mg STK-MED ONCE .ROUTE ; Start 04/12/19 at 12:00; Stop 04/12/19 at 12:02; Status DC Famotidine (Pepcid Vial) 20 mg STK-MED ONCE .ROUTE ; Start 04/12/19 at 12:03; Stop 04/12/19 at 12:03; Status DC Bupivacaine HCl/ Epinephrine Bitart (Sensorcain-Epi 0.5%-1:432886 Mpf) 30 ml 1X ONCE INJ ; Start 04/12/19 at 12:15; Stop 04/12/19 at 12:16; Status DC Sevoflurane (Ultane) 15 ml STK-MED ONCE IH ; Start 04/12/19 at 12:43; Stop 04/12/19 at 12:43; Status DC Piperacillin Sod/ Tazobactam Sod 3.375 gm/Sodium Chloride 50 ml @ 100 mls/hr Q6HRS IV ; Start 04/12/19 at 13:30; Status Cancel Metronidazole 100 ml @ 100 mls/hr Q8HRS IV Last administered on 04/13/19at 06:01; Start 04/12/19 at 14:00 Piperacillin Sod/ Tazobactam Sod 3.375 gm/Sodium Chloride 50 ml @ 100 mls/hr Q6HRS IV Last administered on 04/13/19at 05:26; Start 04/12/19 at 18:00 Vancomycin HCl 2 gm/Sodium Chloride 500 ml @ 250 mls/hr 1X ONCE IV ; Start 04/12/19 at 13:30; Stop 04/12/19 at 15:29; Status Cancel Vancomycin HCl 1.5 gm/Sodium Chloride 500 ml @ 250 mls/hr Q12H IV Last administered on 04/13/19at 02:23; Start 04/13/19 at 03:00 Cellulose (Surgicel Hemostat 4x8) 1 each STK-MED ONCE .ROUTE Last administered on 04/12/19at 12:40; Start 04/12/19 at 13:20; Stop 04/12/19 at 13:20; Status DC Vancomycin HCl (Vanco Per Pharmacy) 1 each PRN DAILY PRN MC SEE COMMENTS Last administered on 04/12/19at 15:31; Start 04/12/19 at 13:30 Fentanyl Citrate (Fentanyl 2ml Vial) 100 mcg STK-MED ONCE .ROUTE ; Start 04/12/19 at 13:27; Stop 04/12/19 at 13:27; Status DC Vancomycin HCl 2 gm/Sodium Chloride 500 ml @ 250 mls/hr 1X ONCE IV Last administered on 04/12/19at 15:08; Start 04/12/19 at 15:00; Stop 04/12/19 at 16:59; Status DC Oxycodone/ Acetaminophen (Percocet 5/325) 1 tab PRN Q4HRS PRN PO PAIN Last administered on 04/13/19at 02:36; Start 04/12/19 at 15:30 Vancomycin HCl (Vancomycin Trough Level) 1 each 1X ONCE MC ; Start 04/14/19 at 02:30; Stop 04/14/19 at 02:31 Lactobacillus Rhamnosus (Culturelle) 1 cap BID PO Last administered on 04/12/19at 20:53; Start 04/12/19 at 21:00 Zolpidem Tartrate (Ambien) 5 mg PRN QHS PRN PO INSOMNIA; Start 04/12/19 at 17:45 Active Scripts Active Augmentin 875-125 Tablet (Amoxicillin/Potassium Clav) 1 Each Tablet 1 Tab PO BID 10 Days Culturelle (Lactobacillus Rhamnosus Gg) 1 Each Cap.sprink 1 Cap PO BID 14 Days Percocet 5-325 Mg Tablet (Oxycodone/Acetaminophen) 1 Each Tablet 1 Tab PO PRN Q4HRS PRN 6 Days Clindamycin Hcl 300 Mg Capsule 1 Cap PO TID 10 Days Zofran Odt (Ondansetron) 4 Mg Tab.rapdis 1 Tab SL Q8HRS Reported Probenecid 500 Mg Tablet 500 Mg PO DAILY Vitals/I & O Vital Sign - Last 24 Hours 04/12/19 04/12/19 04/12/19 04/12/19 10:24 11:00 11:53 11:58 Temp 98.6 98.7 98.6 98.7 Pulse 69 67 Resp 20 15 15 B/P (MAP) 118/76 (90) 134/88 Pulse Ox 97 97 97 O2 Delivery Room Air Room Air Room Air Room Air 04/12/19 04/12/19 04/12/19 04/12/19 12:51 12:51 13:00 13:10 Temp 98.5 98.5 98.5 98.5 Pulse 67 72 68 Resp 16 18 B/P (MAP) 118/74 111/57 (75) 129/74 Pulse Ox 100 98 100 O2 Delivery Mask Simple Mask Room Air Simple Mask O2 Flow Rate 10 10 04/12/19 04/12/19 04/12/19 04/12/19 13:25 13:30 13:32 13:40 Temp 98.5 98.5 98.5 98.5 Pulse 76 67 74 Resp 17 16 16 B/P (MAP) 156/94 115/80 (92) 152/99 Pulse Ox 98 98 99 98 O2 Delivery Room Air Room Air Room Air Room Air 04/12/19 04/12/19 04/12/19 04/12/19 14:00 14:02 14:15 14:30 Pulse 86 62 56 B/P (MAP) 127/67 (87) 115/80 (92) 112/57 (75) Pulse Ox 97 96 97 O2 Delivery Room Air Room Air Room Air Room Air 04/12/19 04/12/19 04/12/19 04/12/19 14:45 15:00 15:00 15:15 Temp 98.2 98.2 Pulse 79 59 74 Resp 20 B/P (MAP) 144/63 (90) 116/63 (80) 115/74 (88) Pulse Ox 96 97 95 O2 Delivery Room Air Room Air Room Air Room Air 04/12/19 04/12/19 04/12/19 04/12/19 16:00 17:35 17:42 19:00 Temp 98.2 98.2 Pulse 65 78 Resp 18 B/P (MAP) 108/42 (64) 127/67 (87) Pulse Ox 97 98 O2 Delivery Room Air Room Air Room Air Room Air 04/12/19 04/12/19 04/12/19 04/12/19 19:00 19:45 21:45 22:00 Temp 97.9 98.0 97.9 98.0 Pulse 66 58 Resp 16 16 B/P (MAP) 115/78 (90) 121/80 (94) Pulse Ox 94 96 O2 Delivery Room Air Room Air Room Air Room Air 04/12/19 04/13/19 04/13/19 04/13/19 22:45 02:36 03:00 03:37 Temp 98.0 98.0 Pulse 59 Resp 16 B/P (MAP) 98/59 (72) Pulse Ox 97 O2 Delivery Room Air Room Air Room Air Room Air 04/13/19 07:15 Temp 98.6 98.6 Pulse 72 Resp 20 B/P (MAP) 10/70 (50) Pulse Ox 97 O2 Delivery Room Air Intake and Output 04/12/19 04/12/19 04/13/19 15:00 23:00 07:00 Intake Total 950 ml 1140 ml Output Total 25 ml 800 ml Balance 925 ml 340 ml KIMBERLEY PIMENTEL MD Apr 13, 2019 08:13
[2019-04-13] MEDS: LACTOBACILLUS RHAMNOSUS GG 1 CAPSULE. PO SCH (09:00)
--- NOTE | 2019-04-13 09:13 | PDOC ---
SURGICAL PROGRESS NOTE Subjective feels much better Vital Signs Vital Signs Date Time Temp Pulse Resp B/P (MAP) Pulse Ox O2 Delivery O2 Flow Rate FiO2 04/13/19 07:15 98.6 72 20 10/70 (50) 97 Room Air 98.6 04/12/19 13:10 10 I&O Intake and Output 04/13/19 07:00 Intake Total 2090 ml Output Total 825 ml Balance 1265 ml Intake Oral 1140 ml IV Total 950 ml Output Urine Total 800 ml Estimated Blood Loss 25 ml # Voids 2 General: Alert, Oriented X3, Cooperative Skin: Other (perineal area with drain in place, less erythema ) Labs Laboratory Tests Test 04/12/19 04:27 White Blood Count 13.7 x10^3/uL (4.0-11.0) Red Blood Count 4.58 x10^6/uL (4.30-5.70) Hemoglobin 14.2 g/dL (13.0-17.5) Hematocrit 40.4 % (39.0-53.0) Mean Corpuscular Volume 88 fL (79-100) Mean Corpuscular Hemoglobin 31 pg (25-35) Mean Corpuscular Hemoglobin Concent 35 g/dL (31-37) Red Cell Distribution Width 12.8 % (11.5-14.5) Platelet Count 445 x10^3/uL (140-400) Neutrophils (%) (Auto) 72 % (31-73) Lymphocytes (%) (Auto) 13 % (24-48) Monocytes (%) (Auto) 12 % (0-9) Eosinophils (%) (Auto) 2 % (0-3) Basophils (%) (Auto) 0 % (0-3) Neutrophils # (Auto) 9.8 x10^3/uL (1.8-7.7) Lymphocytes # (Auto) 1.8 x10^3/uL (1.0-4.8) Monocytes # (Auto) 1.7 x10^3/uL (0.0-1.1) Eosinophils # (Auto) 0.3 x10^3/uL (0.0-0.7) Basophils # (Auto) 0.1 x10^3/uL (0.0-0.2) Sodium Level 135 mmol/L (136-145) Potassium Level 4.1 mmol/L (3.5-5.1) Chloride Level 99 mmol/L (98-107) Carbon Dioxide Level 26 mmol/L (21-32) Anion Gap 10 (6-14) Blood Urea Nitrogen 10 mg/dL (8-26) Creatinine 1.1 mg/dL (0.7-1.3) Estimated GFR (Cockcroft-Gault) 70.9 BUN/Creatinine Ratio 9 (6-20) Glucose Level 121 mg/dL (70-99) Calcium Level 8.9 mg/dL (8.5-10.1) Total Bilirubin 0.7 mg/dL (0.2-1.0) Aspartate Amino Transf (AST/SGOT) 22 U/L (15-37) Alanine Aminotransferase (ALT/SGPT) 61 U/L (16-63) Alkaline Phosphatase 295 U/L (46-116) Total Protein 7.7 g/dL (6.4-8.2) Albumin 3.3 g/dL (3.4-5.0) Albumin/Globulin Ratio 0.8 (1.0-1.7) Problem List Problems Medical Problems: (1) Perianal abscess Status: Acute Assessment/Plan s/p I&D FU in clinic friday to eval drain abx per [facility] SEUN FLAHERTY APRN Apr 13, 2019 09:13
--- NOTE | 2019-04-13 10:19 | NUR ---
Patients dressing cleaned and changed patient refused to have packing changed, took out some d/t it was breaking off, area cleaned and redressed, patient was given new ABD pads and dressing.
--- NOTE | 2019-04-13 10:20 | NUR ---
Discharge instructions and belongings reviewed with patient, verbalized understanding. Patient was escorted out via ambulation by Pamela GARCIA accompanied by his .
--- NOTE | 2019-04-13 21:06 | PDOC3 ---
Discharge Summary Visit Information Date of Admission: Apr 12, 2019 Date of Discharge: Apr 13, 2019 Admitting Diagnosis: Mireya-anal abscess Final Diagnosis Problems Medical Problems: (1) Perianal abscess Status: Acute Brief Hospital Course Allergies Allergies Coded Allergies Type Severity Reaction Last Updated Verified No Known Drug Allergies 04/12/19 No Vital Signs Vital Signs Date Time Temp Pulse Resp B/P (MAP) Pulse Ox O2 Delivery O2 Flow Rate FiO2 04/13/19 08:00 Room Air 04/13/19 07:15 98.6 72 20 10/70 (50) 97 98.6 04/12/19 13:10 10 Lab Results Laboratory Tests Test 04/12/19 04:27 White Blood Count 13.7 x10^3/uL (4.0-11.0) Red Blood Count 4.58 x10^6/uL (4.30-5.70) Hemoglobin 14.2 g/dL (13.0-17.5) Hematocrit 40.4 % (39.0-53.0) Mean Corpuscular Volume 88 fL (79-100) Mean Corpuscular Hemoglobin 31 pg (25-35) Mean Corpuscular Hemoglobin Concent 35 g/dL (31-37) Red Cell Distribution Width 12.8 % (11.5-14.5) Platelet Count 445 x10^3/uL (140-400) Neutrophils (%) (Auto) 72 % (31-73) Lymphocytes (%) (Auto) 13 % (24-48) Monocytes (%) (Auto) 12 % (0-9) Eosinophils (%) (Auto) 2 % (0-3) Basophils (%) (Auto) 0 % (0-3) Neutrophils # (Auto) 9.8 x10^3/uL (1.8-7.7) Lymphocytes # (Auto) 1.8 x10^3/uL (1.0-4.8) Monocytes # (Auto) 1.7 x10^3/uL (0.0-1.1) Eosinophils # (Auto) 0.3 x10^3/uL (0.0-0.7) Basophils # (Auto) 0.1 x10^3/uL (0.0-0.2) Sodium Level 135 mmol/L (136-145) Potassium Level 4.1 mmol/L (3.5-5.1) Chloride Level 99 mmol/L (98-107) Carbon Dioxide Level 26 mmol/L (21-32) Anion Gap 10 (6-14) Blood Urea Nitrogen 10 mg/dL (8-26) Creatinine 1.1 mg/dL (0.7-1.3) Estimated GFR (Cockcroft-Gault) 70.9 BUN/Creatinine Ratio 9 (6-20) Glucose Level 121 mg/dL (70-99) Calcium Level 8.9 mg/dL (8.5-10.1) Total Bilirubin 0.7 mg/dL (0.2-1.0) Aspartate Amino Transf (AST/SGOT) 22 U/L (15-37) Alanine Aminotransferase (ALT/SGPT) 61 U/L (16-63) Alkaline Phosphatase 295 U/L (46-116) Total Protein 7.7 g/dL (6.4-8.2) Albumin 3.3 g/dL (3.4-5.0) Albumin/Globulin Ratio 0.8 (1.0-1.7) Brief Hospital Course Mr Miranda is a 48y M w/ PMHx Gout who p/w tender swollen draining areas in the perianal region, worse on the right. He states he saw doctor several days ago and while they were painful they were not on the surface and they were not drained. He states he's been soaking in hot baths and has got one of the areas to come to the surface and drained. He states that there are other areas that are tender swollen and very painful and not draining. He also states that he has had symptoms testicular pain and his testicles have been swollen over the last 24 hours. He denies any fever chills or sweats. He denies any dysuria or gross hematuria. He has been on oral abx since . Too painful to handle at home . CT shows right gluteal cleft induration. WBC 13K. Admitted for pain control with surgical consultation. S/p I&D with drain placement on 04/12, feeling significant relief. Having BM, he is anxious to leave the hospital. Culture pending - shows GNR. Given augmentin and clindamycin, will f/u culture results. Problem list: A/P: Right gluteal pain - no discrete abscess noted on CT, but with tracking of induration toward scrotum and obvious abscess upon I&D. Empiric antibiotics - vanco, zosyn, flagyl. General surgery consulted Intractable pain - IV and po pain control Less than 30 minutes spent on d/c Discharge Information Condition at Discharge: Improved (1) Follow Up: Weeks (1) Disposition/Orders: D/C to Home Scheduled Amoxicillin/Potassium Clav (Augmentin 875-125 Tablet) 1 Each Tablet, 1 TAB PO BID for Abscess for 10 Days, #20 Ref 0 Prescribed by: KIMBERLEY PIMENTEL MD on 04/12/191941 Clindamycin Hcl (Clindamycin Hcl) 300 Mg Capsule, 1 CAP PO TID for Antibiotic for 10 Days, #30 Prescribed by: KIMBERLEY PIMENTEL MD on 04/12/191941 Lactobacillus Rhamnosus Gg (Culturelle) 1 Each Cap.sprink, 1 CAP PO BID for Diarrhea for 14 Days, #28 Prescribed by: KIMBERLEY PIMENTEL MD on 04/12/191941 Ondansetron (Zofran Odt) 4 Mg Tab.rapdis, 1 TAB SL Q8HRS, #15 Prescribed by: Silvana Jose APRN on 05/05/172057 Probenecid (Probenecid) 500 Mg Tablet, 500 MG PO DAILY for Gout, (Reported) Entered as Reported by: SINCERE AKINS on 04/12/19903 Last Action: New Order on 04/12/19903 by SINCERE AKINS Scheduled PRN Oxycodone/Apap 5-325 (Percocet 5-325 Mg Tablet ) 1 Each Tablet, 1 TAB PO PRN Q4HRS PRN for PAIN for 6 Days, #24 Prescribed by: KIMBERLEY PIMENTEL MD on 04/12/191942 Discontinued Medications Hydrocodone/Chlorphen Polis (Hydrocodone-Chlorpheniram Susp) 5 Ml Drea.er.12h, 5 ML PO PRN Q12HR PRN for COUGH, #100 Ref 0 Prescribed by: Silvana Jose APRN on 05/05/172051 KIMBERLEY PIMENTEL MD Apr 13, 2019 21:06
== END 2019-04-13 10:30 | disposition home or self-care (01) ==
LOC: ER 03:53 → 4 NORTH 05:46
PROVIDERS: ADMIT Family Medicine; ATTEND Family Medicine
DX: K61.1 Rectal abscess (principal); K61.0 Anal abscess; M10.9 Gout, unspecified; Z98.890 Other specified postprocedural states
CPT/HCPCS: 36415; 45005; 72193; 76870; 80053; 85025; 87071; 87075; 87186; 96365; 96366; 96367; 96375; 96376; 99284; A7015; G0378; J1100; J2001; J2250; J2405; J2543; J2704; J3010; J3370; J3490; J7030; J7040; J7120; G0379; A4461